=== PATIENT | male | born 1975 | race Caucasian/White ===

== ENCOUNTER 2018-01-01 08:57 | Emergency (ER) | payer MEDICAID ==
[~2018-01-01] VITALS: Ht 167.6 cm; Wt 79.5 kg
[2018-01-01] MEDS ORDERED: DEXAMETHASONE SOD PHOS 4 MG/ML 5 ML VIAL IM ONE (09:15)
[2018-01-01] MEDS ORDERED: IBUPROFEN 600 MG TABLET PO ONE (09:15)
[2018-01-01] MEDS ORDERED: PENICILLIN G BENZATHINE LA 1,200,000 UNITS/2 ML SYRINGE IM ONE (10:30)
[2018-01-01 10:35] VITALS: BP 148/80
== END 2018-01-01 11:08 | disposition home or self-care (01) ==
LOC: EMS 08:59
DX: J02.0 Streptococcal pharyngitis (principal)
CPT/HCPCS: 87430; 96372; 99284; J0561; J1100

== ENCOUNTER 2019-05-10 10:13 | Emergency (ER) | payer MEDICAID, OTHER ==
[~2019-05-10] VITALS: Ht 170.2 cm; Wt 90.9 kg
[2019-05-10 11:15] LABS: BASOPHILS % (AUTO) 0.7 % (0.0-2.0); HEMATOCRIT 45.4 % (41-53); HEMOGLOBIN 15.1 g/dL (13.5-17.5); LYMPHOCYTES # (AUTO) 3.2 K/uL (1.0-4.8); LYMPHOCYTES % (AUTO) 42.8 % (22.0-44.0); MEAN CORPUSCULAR HEMOGLOBIN 26.2 pg (26.0-34.0); MEAN CORPUSCULAR HGB CONC 33.3 G/dL (31.0-37.0); MEAN CORPUSCULAR VOLUME 79 fL (80-100); MONOCYTES # (AUTO) 0.6 K/uL (0.1-1.0); MONOCYTES % (AUTO) 7.6 % (2.0-9.0); NEUTROPHILS # (AUTO) 3.4 K/uL (1.8-7.7); NEUTROPHILS % (AUTO) 45.9 % (40.0-70.0); PLATELET COUNT (AUTO) 252 K/uL (150-450); RED BLOOD CELL COUNT(AUTO) 5.77 MIL/uL (4.50-5.90); RED CELL DISTRIBUTION WIDTH 14.1 % (11.5-14.5)
[2019-05-10 11:27] LABS: ANION GAP 8 mmol/L (8-16); CALCIUM, TOTAL 9.4 mg/dL (8.8-10.5); CARBON DIOXIDE 29 mmol/L (22-29); CHLORIDE 103 mmol/L (98-107); CREATININE 1.13 mg/dL (0.60-1.30); GLOMERULAR FILTR. RATE CALC > 60 mL/min (>60); GLUCOSE,RANDOM 89 mg/dL (70-110); POTASSIUM 3.7 mmol/L (3.5-5.1); SODIUM SERUM 140 mmol/L (136-145); UREA NITROGEN, BLOOD 14 mg/dL (7-18)
[2019-05-10 11:33] LABS: ALANINE AMINOTRANSFERASE 54 U/L (12-78); ALBUMIN 3.8 g/dL (3.4-5.0); ALKALINE PHOSPHATASE 86 U/L (46-116); ASPARTATE AMINOTRANSFERASE 22 U/L (15-37); BILIRUBIN,TOTAL 0.3 mg/dL (0.1-1.0); LIPASE 108 U/L (73-393)
[2019-05-10] MEDS ORDERED: ONDANSETRON HCL 4 MG/2 ML VIAL IVP ONE (12:15)
[2019-05-10] MEDS ORDERED: BARIUM SULFATE 0.1% SUSPENSION 450 ML BOTTLE PO ONE (12:15)
[2019-05-10] MEDS ORDERED: MORPHINE SULFATE 4 MG/ML SYRINGE IVP ONE (12:15)
[2019-05-10 12:46] VITALS: BP 121/84
== END 2019-05-10 13:30 | disposition home or self-care (01) ==
LOC: EMS 10:14
DX: R19.7 Diarrhea, unspecified (principal)

== ENCOUNTER 2020-12-25 03:21 | Emergency (ER) | payer MEDICAID ==
[~2020-12-25] VITALS: Ht 167.6 cm; Wt 90.0 kg
[2020-12-25] MEDS ORDERED: ACETAMINOPHEN 500 MG TABLET PO ONE (04:15)
[2020-12-25] MEDS ORDERED: KETOROLAC TROMETHAMINE 30 MG/ML VIAL IM ONE (04:15)
[2020-12-25] MEDS ORDERED: LIDOCAINE 5% TRANSDERMAL PATCH TD ONE (04:15)
[2020-12-25 04:22] LABS: BASOPHILS % (AUTO) 0.3 % (0.0-2.0); HEMATOCRIT 43.5 % (41-53); HEMOGLOBIN 14.1 g/dL (13.5-17.5); LYMPHOCYTES # (AUTO) 2.3 K/uL (1.0-4.8); LYMPHOCYTES % (AUTO) 21.3 % (22.0-44.0); MEAN CORPUSCULAR HEMOGLOBIN 25.9 pg (26.0-34.0); MEAN CORPUSCULAR HGB CONC 32.5 G/dL (31.0-37.0); MEAN CORPUSCULAR VOLUME 80 fL (80-100); MONOCYTES # (AUTO) 1.4 K/uL (0.1-1.0); MONOCYTES % (AUTO) 12.8 % (2.0-9.0); NEUTROPHILS % (AUTO) 63.6 % (40.0-70.0); PLATELET COUNT (AUTO) 222 K/uL (150-450); RED BLOOD CELL COUNT(AUTO) 5.46 MIL/uL (4.50-5.90); RED CELL DISTRIBUTION WIDTH 13.8 % (11.5-14.5)
[2020-12-25 04:43] LABS: ANION GAP 9 mmol/L (8-16); CALCIUM, TOTAL 8.9 mg/dL (8.8-10.5); CARBON DIOXIDE 27 mmol/L (22-29); CHLORIDE 102 mmol/L (98-107); CREATININE 0.99 mg/dL (0.60-1.30); GLOMERULAR FILTR. RATE CALC > 60 mL/min (>60); GLUCOSE,RANDOM 103 mg/dL (70-110); POTASSIUM 3.8 mmol/L (3.5-5.1); SODIUM SERUM 138 mmol/L (136-145); UREA NITROGEN, BLOOD 16 mg/dL (7-18)
[2020-12-25 04:50] LABS: ALANINE AMINOTRANSFERASE 41 U/L (12-78); ALBUMIN 3.6 g/dL (3.4-5.0); ALKALINE PHOSPHATASE 66 U/L (46-116); ASPARTATE AMINOTRANSFERASE 18 U/L (15-37); BILIRUBIN,TOTAL 0.5 mg/dL (0.1-1.0); TOTAL PROTEIN, SERUM 8.1 g/dL (6.4-8.2)
[2020-12-25 06:00] VITALS: BP 135/88
== END 2020-12-25 06:24 | disposition home or self-care (01) ==
LOC: EMS 03:23
DX: M54.2 Cervicalgia (principal); R07.9 Chest pain, unspecified
CPT/HCPCS: 36415; 71045; 80053; 84484; 85025; 93005; 96372; 99285; J1885

== ENCOUNTER 2021-11-28 00:32 | Emergency (ER) | payer MEDICAID ==
[~2021-11-28] VITALS: Ht 170.2 cm; Wt 88.6 kg
[2021-11-28] MEDS ORDERED: POVIDONE-IODINE 10% 15 ML SOLUTION UD TP ONE (04:30)
[2021-11-28] MEDS ORDERED: LIDOCAINE 1% 10 ML VIAL ID ONE (04:30)
[2021-11-28] MEDS ORDERED: HYDROCODONE/ACETAMINOPHEN 5-325 MG TABLET PO ONE (04:30)
[2021-11-28 05:30] VITALS: BP 132/89
== END 2021-11-28 05:56 | disposition home or self-care (01) ==
LOC: EMS 00:35
DX: S60.042A Contusion of left ring finger without damage to nail, initial encounter (principal); W23.0XXA Caught, crushed, jammed, or pinched between moving objects, initial encounter; Y93.89 Activity, other specified; Y92.89 Other specified places as the place of occurrence of the external cause; Y99.8 Other external cause status
CPT/HCPCS: 99284; 73140; 11740; J3490

== ENCOUNTER 2024-10-26 09:10 | Emergency (ER) | payer MEDICAID ==
[~2024-10-26] VITALS: Ht 170.2 cm; Wt 90.9 kg
[2024-10-26 09:16] VITALS: BP 140/80; PULSE 84; RESP 18; TEMP 98.1; O2SAT 99
[2024-10-26] MEDS: IBUPROFEN 600 MG TABLET PO ONE (10:56)
[2024-10-26] MEDS ORDERED: IBUP-1492 PO (11:43)
== END 2024-10-26 11:55 | disposition home or self-care (01) ==
LOC: EMS 09:19
DX: S90.31XA Contusion of right foot, initial encounter (principal); W20.8XXA Other cause of strike by thrown, projected or falling object, initial encounter; Y93.89 Activity, other specified; Y92.89 Other specified places as the place of occurrence of the external cause; Y99.8 Other external cause status
CPT/HCPCS: 99283